=== PATIENT | female | born 1945 | race Caucasian/White ===

== ENCOUNTER → 2016-11-24 | Outpatient (CLI) | payer MEDICARE ==
--- NOTE | 2016-11-24 10:25 | MM ---
Reason for exam: additional evaluation requested from prior study. Last mammogram was performed 1 year and 3 months ago. History: Patient is postmenopausal, has history of breast cancer at age 62, and has history of other cancer at age 58. Benign right mammotome panel of the right breast, October 13, 2010. Excisional biopsy of the right breast, May 08, 2008. Malignant right mammotome panel of the right breast, April 28, 2008. Radiation therapy of the right breast, 2007. Chemotherapy. Took estrogen for 5 years. Took antineoplastic for 5 years beginning at age 62. Physical Findings: Nurse did not find any significant physical abnormalities on exam. MG 3D Diag Mammo W/Cad GREG Bilateral CC and MLO view(s) were taken. Prior study comparison: August 19, 2015, bilateral MG 3d diag mammo w/cad GREG. April 27, 2014, bilateral MG diagnostic mammo w CAD GREG. The breast tissue is heterogeneously dense. This may lower the sensitivity of mammography. Finding #1: Architectural distortion in the posterior position of the right breast consistent with known lumpectomy. Finding #2: There are typically benign round calcifications in both breasts. There is no discrete abnormality. These results were verbally communicated with the patient and result sheet given to the patient on 11/24/16. ASSESSMENT: Benign, BI-RAD 2 RECOMMENDATION: Follow-up diagnostic mammogram of both breasts in 1 year.
== END | disposition home or self-care (01) ==
LOC: RADMAMWWP 09:33
PROVIDERS: ATTEND Surgery
DX: R92.8 Other abnormal and inconclusive findings on diagnostic imaging of breast (principal)
CPT/HCPCS: G0204; G0279

== ENCOUNTER → 2017-05-12 | Outpatient (CLI) | payer MEDICARE ==
--- NOTE | 2017-05-12 09:52 | PE ---
EXAMINATION TYPE: PET CT fusion skull to thigh DATE OF EXAM: 05/12/2017 CLINICAL HISTORY: Lymphoma progress study originally diagnosed 2003 per patient. Completed chemothera py 2014. History of surgery for right-sided lung cancer 2003 and surgery for right-sided breast cance r 2007 per patient. Radiation treatment for right hip October 2016 per patient. TECHNIQUE: Following the intravenous administration of 15.05 mCi of F-18 FDG, whole body images are performed from the skull base to the midthigh. Images are reviewed on the computer in the coronal, axial, and sagittal planes. Reconstructed rotating images are created on independent workstation and reviewed on the computer. A non-contrast CT is performed in conjunction with the PET scan. COMPARISON: Most recent PET/CT November 11, [address] July 25, 2016. Older PET CTs back through December 05, 2014 FINDINGS: SKULL BASE AND NECK: No suspicious no hypermetabolic uptake is seen in the neck to suggest neck lakshmi opathy. CHEST, MEDIASTINUM, AND HILAR REGION: No suspicious hypermetabolic uptake is seen in the thorax to herrmann ggest new thoracic adenopathy. ABDOMEN AND PELVIS: Normal excretion from both kidneys is seen. There is persistent moderate right-si ded hydronephrosis. No suspicious hypermetabolic uptake is seen in the abdomen or pelvis on current study. Slightly more prominent soft tissue presacral region remains present, right greater than left without abnormal hype rmetabolic uptake on current study. OSSEOUS STRUCTURES: No suspicious hypermetabolic uptake is seen in the osseous structures. OTHER CT: There is background mild emphysematous change. Groundglass opacity posteriorly left upper l jeanette is redemonstrated and may reflect edema and/or atelectasis. There is persistent linear scarring m edially in the left lung base and in the lingula near diaphragm. There is surgical changes right isabel r region from partial pneumonectomy redemonstrated. There is persistent stable lumpectomy changes medially in the right breast. There is persistent moderate to large size hiatal hernia. There is heterogeneous hypodense appearance to liver particularly right hepatic lobe consistent with diffuse fatty infiltration redemonstrated. There are large simple appearing cysts posteriorly lower pole level of both kidneys redemonstrated. Diverticula in the sigmoid colon are redemonstrated. There are moderate to large sized fat-containing inguinal hernia is redemonstrated. Uterus is surgically absent or markedly atrophic in appearance. There is moderate calcified plaque of aorta extending into branch vessels. Osseous structures are demineralized. There is underlying levoconvex scoliosis and lumbar spine redem onstrated. There is moderate multilevel spurring and disc space narrowing in the lumbar spine. Facet arthropathy lower lumbar levels is redemonstrated. There is multilevel spurring in the thoracolumbar spine noted. Calcification in left labia is redemonstrated. IMPRESSION: Stable abnormal soft tissue presacral region lower abdomen and pelvis corresponds to know n lymphoma. No areas of hypermetabolic uptake are identified to suggest active neoplastic recurrence.
== END | disposition home or self-care (01) ==
LOC: RADPETMAIN 07:19
PROVIDERS: ATTEND Internal Medicine Hematology & Oncology
DX: C85.16 Unspecified B-cell lymphoma, intrapelvic lymph nodes (principal)
CPT/HCPCS: 78815; A9552

== ENCOUNTER → 2017-12-05 | Outpatient (CLI) | payer MEDICARE ==
--- NOTE | 2017-12-05 09:42 | MM ---
Reason for exam: screening (asymptomatic). Last mammogram was performed 1 year ago. History: Patient is postmenopausal, has history of breast cancer at age 62, and has history of other cancer at age 58. Benign right mammotome panel of the right breast, October 13, 2010. Excisional biopsy of the right breast, May 08, 2008. Malignant right mammotome panel of the right breast, April 28, 2008. Radiation therapy of the right breast, 2007. Chemotherapy. Took estrogen for 5 years. Took antineoplastic for 5 years beginning at age 62. Physical Findings: A clinical breast exam by your physician is recommended on an annual basis and results should be correlated with mammographic findings. MG 3D Diag Mammo W/Cad GREG Bilateral CC and MLO view(s) were taken. Prior study comparison: November 24, 2016, bilateral MG 3d diag mammo w/cad GREG. August 19, 2015, bilateral MG 3d diag mammo w/cad GREG. The breast tissue is heterogeneously dense. This may lower the sensitivity of mammography. There is no discrete abnormality. Stable post operative changes in the right breast. No significant new findings when compared with previous films. These results were verbally communicated with the patient and result sheet given to the patient on 12/05/17. ASSESSMENT: Benign, BI-RAD 2 RECOMMENDATION: Follow-up diagnostic mammogram of both breasts in 1 year.
== END | disposition home or self-care (01) ==
LOC: RADMAMWWP 07:50
PROVIDERS: ATTEND Family Medicine
DX: R92.0 Mammographic microcalcification found on diagnostic imaging of breast (principal); Z85.3 Personal history of malignant neoplasm of breast
CPT/HCPCS: 77066; G0279

== ENCOUNTER → 2018-12-16 | Outpatient (CLI) | payer MEDICARE ==
--- NOTE | 2018-12-16 10:25 | MM ---
Reason for exam: additional evaluation requested from prior study. Last mammogram was performed 1 year ago. History: Patient is postmenopausal, has history of breast cancer at age 62, and has history of other cancer at age 58. Family history of breast cancer in paternal cousin. Benign right mammotome panel of the right breast, October 13, 2010. Excisional biopsy of the right breast, May 08, 2008. Malignant right mammotome panel of the right breast, April 28, 2008. Radiation therapy of the right breast, 2007. Chemotherapy. Took estrogen for 5 years. Took antineoplastic for 5 years beginning at age 62. Physical Findings: Nurse did not find any significant physical abnormalities on exam. MG 3D Diag Mammo W/Cad GREG Bilateral CC and MLO view(s) were taken. Prior study comparison: December 05, 2017, bilateral MG 3d diag mammo w/cad GREG. November 24, 2016, bilateral MG 3d diag mammo w/cad GREG. The breast tissue is heterogeneously dense. This may lower the sensitivity of mammography. Finding #1: Architectural distortion in the inner quadrant, posterior position of the right breast consistent with known lumpectomy. Finding #2: There are typically benign vascular, round calcifications in both breasts. There is no discrete abnormality. These results were verbally communicated with the patient and result sheet given to the patient on 12/16/18. ASSESSMENT: Benign, BI-RAD 2 RECOMMENDATION: Follow-up diagnostic mammogram of both breasts in 1 year.
== END | disposition home or self-care (01) ==
LOC: RADMAMWWP 09:13
PROVIDERS: ATTEND Family Medicine
DX: R92.8 Other abnormal and inconclusive findings on diagnostic imaging of breast (principal)
CPT/HCPCS: 77066; G0279; 77062

== ENCOUNTER → 2019-05-15 | Outpatient (CLI) | payer MEDICARE ==
--- NOTE | 2019-05-15 10:04 | CT ---
EXAMINATION TYPE: CT ChestAbdPelvis w con DATE OF EXAM: 05/15/2019 COMPARISON: PET/CT scan 05/12/2017 HISTORY: Lymphoma CT DLP: 1442.9 mGycm Automated exposure control for dose reduction was used. CONTRAST: CT scan of the chest, abdomen and pelvis is performed with Oral Contrast and with IV Contrast, patien t injected with 100 mL of Isovue 300. FINDINGS: LUNGS: The lungs are grossly clear, there is no concerning parenchymal mass or nodule identified. T here is no pleural effusion or pneumothorax seen. The tracheobronchial tree is patent. Subsegmental consolidation left lung base suggestive of scar or atelectasis. Mild emphysematous changes suggested. MEDIASTINUM: There are no greater than 1 cm hilar or mediastinal lymph nodes. No pericardial effusi on is seen. OTHER: Calcifications previous biopsy involving the right breast noted. Large hiatal hernia LIVER/GB: Mild reduced attenuation the liver suggestive of mild fatty infiltration.. PANCREAS: No significant abnormality is seen. SPLEEN: No significant abnormality is seen. ADRENALS: No significant abnormality is seen. KIDNEYS: Simple appearing cysts are seen bilaterally. BOWEL: Gas pattern nonspecific. No definite obstruction. Diverticulosis noted. LYMPH NODES: No greater than 1 cm abdominal or pelvic lymph nodes are appreciated. OSSEOUS STRUCTURES: Hypertrophic and degenerative change of the spine noted. Severe arthropathy of th e left hip. OTHER: Uterus surgically absent. Atherosclerotic change of the aorta with no evidence of aneurysm. As ymmetric soft tissue prominence of the right posterior presacral region is stable. Measures 5.8 x 1.8 cm and is stable. 3 mm density along the outer margin the right breast on axial image 27 appears to be related to tissue coronal and sagittal images. Surgical clips in masslike density or large scar in the inner margin of the right breast is stable from recent PET scan. IMPRESSION: 1. There is no interval change in the appearance of the asymmetric soft tissue prominence in the righ t presacral region relative to the prior PET/CT scan. There is no evidence of new adenopathy. Line 2. Findings involving the right breast are stable relative to the prior exam.
== END | disposition home or self-care (01) ==
LOC: RADCTMAIN 07:34
PROVIDERS: ATTEND Internal Medicine Hematology & Oncology
DX: C85.16 Unspecified B-cell lymphoma, intrapelvic lymph nodes (principal); Z88.2 Allergy status to sulfonamides
CPT/HCPCS: 82565; 84520; 71260; 74177; 36415; Q9967

== ENCOUNTER → 2020-02-26 | Outpatient (CLI) | payer MEDICARE ==
--- NOTE | 2020-03-02 07:57 | MM ---
Reason for exam: additional evaluation requested from prior study. Last mammogram was performed 1 year and 2 months ago. History: Patient is postmenopausal, has history of breast cancer at age 62, and has history of other cancer at age 58. Family history of breast cancer in paternal cousin. Benign right mammotome panel of the right breast, October 13, 2010. Excisional biopsy of the right breast, May 08, 2008. Malignant right mammotome panel of the right breast, April 28, 2008. Radiation therapy of the right breast, 2007. Chemotherapy. Took estrogen for 5 years. Took antineoplastic for 5 years beginning at age 62. Physical Findings: Nurse did not find any significant physical abnormalities on exam. MG 3D Diag Mammo W/Cad GREG Bilateral CC and MLO view(s) were taken. Prior study comparison: December 16, 2018, bilateral MG 3d diag mammo w/cad GERG. December 05, 2017, bilateral MG 3d diag mammo w/cad GREG. The breast tissue is heterogeneously dense. This may lower the sensitivity of mammography. Post biopsy changes right upper inner quadrant. No significant new findings when compared with previous films. These results were verbally communicated with the patient and result sheet given to the patient on 02/26/20. ASSESSMENT: Benign, BI-RAD 2 RECOMMENDATION: Follow-up diagnostic mammogram of both breasts in 1 year.
== END | disposition home or self-care (01) ==
LOC: RADMAMWWP 10:56
PROVIDERS: ATTEND Internal Medicine Hematology & Oncology
DX: Z85.3 Personal history of malignant neoplasm of breast (principal)
CPT/HCPCS: 77066; G0279; 77062

== ENCOUNTER → 2020-05-17 | Outpatient (CLI) | payer MEDICARE ==
--- NOTE | 2020-05-17 14:58 | CT ---
EXAMINATION TYPE: CT ChestAbdPelvis w con DATE OF EXAM: 05/17/2020 COMPARISON: CT chest abdomen pelvis 05/15/2019 HISTORY: Lymphoma CT DLP: 1523.2 mGycm Automated exposure control for dose reduction was used. CONTRAST: CT scan of the chest, abdomen and pelvis is performed with Oral Contrast and without and with IV Cont rast, patient injected with 80 mL of Isovue 300. FINDINGS: LUNGS: The lungs are grossly clear, there is no concerning parenchymal mass or nodule identified. Mil d centrilobular emphysema. Scarring or linear atelectasis at the left lung base. There is no pleural effusion or pneumothorax seen. The tracheobronchial tree is patent. MEDIASTINUM: There are no greater than 1 cm hilar or mediastinal lymph nodes. Cardiac size normal. N o pericardial effusion is seen. No thoracic aortic aneurysm. OTHER: No axillary adenopathy. Calcifications and surgical clips involving the right breast hypodens e mass unchanged versus 05/15/2019 CT comparison. LIVER/GB: Fatty liver, primarily involving the right lobe. No focal liver lesion. No intrahepatic or extrahepatic ductal dilatation. PANCREAS: Normal. SPLEEN: Not enlarged. No focal lesion. ADRENALS: Normal. KIDNEYS: Right extrarenal pelvis unchanged. No hydronephrosis bilaterally. There is mild asymmetric p rominence of the right ureter to the level of the right presacral soft tissue, which is unchanged arabella gabriel 2019 CT comparison and may represent some element of chronic tethering, with no jhon hydroureter . Large bilateral simple renal cysts. BOWEL: Large hiatal hernia. No evidence of bowel obstruction or thickening. Sigmoid colon diverticul osis. No acute diverticulitis. Normal appendix. PERITONEUM: No pneumoperitoneum. No free fluid. Bilateral fat-containing inguinal hernias. PELVIS: There is redemonstrated soft tissue in the right presacral region which is unchanged versus comparison. Urinary bladder normal. Status post hysterectomy. LYMPH NODES: No lymphadenopathy. VASCULATURE: No abdominal aortic aneurysm. Calcified atherosclerotic disease of the abdominal aorta. OSSEOUS STRUCTURES: No aggressive osseous destructive lesions. There is redemonstrated heterogenous s clerotic and lytic appearance of the right iliac bone, which is unchanged versus at least 09/02/[address] comparison. Degenerative changes of the spine and bilateral hips. Levocurvature of the lumbar spine. IMPRESSION: 1. Unchanged right presacral soft tissue versus 05/15/2019 CT comparison and 05/12/[address] compariso n. 2. No evidence of new lymphadenopathy or metastatic disease of the chest, abdomen, or pelvis. 3. Fatty liver. 4. Unchanged appearance of the right breast.
== END ==
LOC: RADCTMAIN 08:47
PROVIDERS: ATTEND Internal Medicine Hematology & Oncology
DX: K76.0 Fatty (change of) liver, not elsewhere classified (principal); C85.16 Unspecified B-cell lymphoma, intrapelvic lymph nodes; Z88.2 Allergy status to sulfonamides
CPT/HCPCS: 82565; 84520; 71260; 74177; 36415; Q9967

== ENCOUNTER → 2020-09-17 | Outpatient (CLI) | payer MEDICARE ==
--- NOTE | 2020-09-17 11:39 | USB ---
Reason for exam: clinical finding. History: Patient is postmenopausal, has history of breast cancer at age 62, and has history of other cancer at age 58. Family history of breast cancer in paternal cousin. Benign right mammotome panel of the right breast, October 13, 2010. Excisional biopsy of the right breast, May 08, 2008. Malignant right mammotome panel of the right breast, April 28, 2008. Radiation therapy of the right breast, 2007. Chemotherapy. Took estrogen for 5 years. Took antineoplastic for 5 years beginning at age 62. Indicated problem(s): lump or thickening in the right breast. Physical Findings: Nurse Summary: 1cm hard, thick nodule at 11 o'clock (nurse dw). US Breast RT Right complete breast ultrasound includes all four quadrants, the retroareolar region and axilla. Finding demonstrates a 3.3 x 4.4 x 1.2cm mixed lesion at 1 o'clock, mobile debris with calcifications and tract to skin line. These results were verbally communicated with the patient and result sheet given to the patient on 09/17/20. ASSESSMENT: Benign, BI-RAD 2 RECOMMENDATION: Routine screening mammogram of both breasts in 6 months.
== END | disposition home or self-care (01) ==
LOC: RADUSWWP 10:04
PROVIDERS: ATTEND Internal Medicine Hematology & Oncology
DX: N63.10 Unspecified lump in the right breast, unspecified quadrant (principal); Z85.3 Personal history of malignant neoplasm of breast

== ENCOUNTER → 2021-03-21 | Outpatient (CLI) | payer MEDICARE ==
--- NOTE | 2021-03-23 13:58 | MM ---
Reason for exam: screening (asymptomatic). Last mammogram was performed 1 year and 1 month ago. History: Patient is postmenopausal, has history of breast cancer at age 62, and has history of other cancer at age 58. Family history of breast cancer in paternal cousin. Benign right mammotome panel of the right breast, October 13, 2010. Excisional biopsy of the right breast, May 08, 2008. Malignant right mammotome panel of the right breast, April 28, 2008. Radiation therapy of the right breast, 2007. Chemotherapy. Took estrogen for 5 years. Took antineoplastic for 5 years beginning at age 62. Physical Findings: A clinical breast exam by your physician is recommended on an annual basis and results should be correlated with mammographic findings. MG 3D Screening Mammo W/Cad Bilateral CC and MLO view(s) were taken. Prior study comparison: February 26, 2020, bilateral MG 3d diag mammo w/cad GREG. December 16, 2018, bilateral MG 3d diag mammo w/cad GREG. December 05, 2017, bilateral MG 3d diag mammo w/cad GREG. The breast tissue is heterogeneously dense. This may lower the sensitivity of mammography. Right post operative changes. ASSESSMENT: Benign, BI-RAD 2 RECOMMENDATION: Routine screening mammogram of both breasts in 1 year.
== END | disposition home or self-care (01) ==
LOC: RADMAMWWP 08:03
PROVIDERS: ATTEND Family Medicine
DX: Z12.31 Encounter for screening mammogram for malignant neoplasm of breast (principal); Z78.0 Asymptomatic menopausal state; Z80.3 Family history of malignant neoplasm of breast; Z85.3 Personal history of malignant neoplasm of breast
CPT/HCPCS: 77063; 77067

== ENCOUNTER → 2021-06-21 | Outpatient (CLI) | payer MEDICARE ==
--- NOTE | 2021-06-21 15:34 | CT ---
EXAMINATION TYPE: CT ChestAbdPelvis w con DATE OF EXAM: 06/21/2021 COMPARISON: CT 05/17/2020 HISTORY: Lymphoma, Lung CA, Breast CA CT DLP: 1461.1 mGycm Automated exposure control for dose reduction was used. CONTRAST: CT scan of the chest, abdomen and pelvis is performed with Oral Contrast and with IV Contrast, patien t injected with 80 mL of Isovue 300. FINDINGS: LUNGS: The lungs are stable, there is no concerning parenchymal mass or nodule identified. There ar e some interstitial changes, scarring present similar to prior exam There is no pleural effusion or p neumothorax seen. The tracheobronchial tree is patent. MEDIASTINUM: There are no greater than 1 cm hilar or mediastinal lymph nodes. No pericardial effusi on is seen. There is a hiatal hernia with partial intrathoracic stomach, postop changes are noted in the right hilar region AORTA: No significant abnormality is seen. 4 super aortic branch vessels are again noted, atheromato us changes are present within the aorta. OTHER: Postop changes are again noted in the medial right breast with a similar appearance, soft tiss ue extending to the level of the skin. LIVER/GB: No significant interval change is appreciated. Low-attenuation again noted within the live r suggests hepatic steatosis, gallbladder is normal PANCREAS: No significant abnormality is seen. SPLEEN: No significant abnormality is seen. ADRENALS: No significant abnormality is seen. KIDNEYS: No significant interval change is seen, large exophytic cortical cysts are again seen, extra renal pelvis is noted on the right similar to prior exam. The tethered appearance of the right ureter extending towards the right pelvic sidewall mildly asymmetric soft tissue is again seen REPRODUCTIVE ORGANS: No gross abnormality seen. BOWEL: No significant abnormality is seen. FREE AIR: No Free Air visible. ASCITES: None seen. RETROPERITONEAL ADENOPATHY: No retroperitoneal adenopathy is seen. LYMPH NODES: No greater than 1 cm abdominal or pelvic lymph nodes are appreciated. URINARY BLADDER: No significant abnormality is seen. PELVIC ADENOPATHY: None visualized. OSSEOUS STRUCTURES: No significant interval change is seen, sclerotic density is again noted in the right ilium. Arthropathy, osteoarthritic changes are present within the left hip as on prior. Facet a rthropathy, degenerative disc changes, scoliotic curvature again noted within the visualized spine.. IMPRESSION: Findings are essentially stable.
== END | disposition home or self-care (01) ==
LOC: RADCTMAIN 09:08
PROVIDERS: ATTEND Internal Medicine Hematology & Oncology
DX: C85.16 Unspecified B-cell lymphoma, intrapelvic lymph nodes (principal); C34.90 Malignant neoplasm of unspecified part of unspecified bronchus or lung; C50.919 Malignant neoplasm of unspecified site of unspecified female breast
CPT/HCPCS: 82565; 84520; 71260; 74177; 36415; Q9967 ×2

== ENCOUNTER → 2021-07-15 | Outpatient (CLI) | payer MEDICARE ==
--- NOTE | 2021-07-15 11:46 | BD ---
EXAMINATION TYPE: Axial Bone Density DATE OF EXAM: 07/15/2021 COMPARISON: NONE CLINICAL HISTORY: 75 YR OLD FEMALE.....ICD-10 CODE: C50.919 BR CANCER, M85.9 OSTEOPENIA Height: 66.4 Weight: 198 FRAX RISK QUESTIONS: Secondary Osteoporosis: YES 3. Menopause before 45: YES RISK FACTORS HISTORY OF: Family History of Osteoporosis: UNKNOWN, Postmenopausal woman: YES, AT AGE 40 YRS NATURAL Take estrogen and/or progesterone medications: YES FOR ABOUT 3-4 YRS Hyperparathyroidism: NO Adrenal Insufficiency: NO MEDICATIONS: Osteoporosis Medications: YES, IN THE PAST FOR ABOUT 5 YRS, FOSAMAX Additional Medications: HX OF RADIATION AND CHEMO, BP MEDS, REFLUX MEDS, STATIN FOR CHOLESTEROL, VIT D AND CALCIUM ,NSAIDS ASPIRIN Additional History: HX OF BR CANCER RT BREAST, LYMPHOMA, HX OF RADIATION, CHEMO, PAGET DISEASE, LUNG CANCER, HYPERTENSION, REFLUX, CHOLESTEROL, ARTHRITIS EXAM MEASUREMENTS: Bone mineral densitometry was performed using the [employer] System. Bone mineral density as measured about the Lumbar spine is: ----- L1-L4(G/cm2): 1.152 T Score Values are as follows: ----- L1: -0.9 ----- L2: -0.8 ----- L3: 1.0 ----- L4: -0.2 ----- L1-L4: -0.2 Bone mineral density FIRST DEXA AT [facility] Bone mineral density about the R hip (g/cm2): 1.127 Bone mineral density about the L hip (g/cm2): 1.216 T Score values are as follows: -----R Neck: -0.4 -----L Neck: 2.9 -----R Total: 0.9 -----L Total: 1.7 Bone mineral density FIRST STUDY AT [facility] FRAX%s: THERE IS A 8.3% CHANCE FOR A MAJOR OSTEOPOROTIC FX AND A 0.9% FOR HIP.....PROBABILITY FOR FX IN 10 YRS TIME IMPRESSION: Normal (Values between +1 and -1 indicate normal bone mass). Consider repeating this study in 5 year s or sooner if there is some new clinical indication. NOTE: T-SCORE=SD OF THE YOUNG ADULT MEAN.
== END | disposition home or self-care (01) ==
LOC: RADBDWWP 10:18
PROVIDERS: ATTEND Internal Medicine Hematology & Oncology
DX: C50.919 Malignant neoplasm of unspecified site of unspecified female breast (principal); M85.9 Disorder of bone density and structure, unspecified
CPT/HCPCS: 77080

== ENCOUNTER 2021-11-08 07:59 | Day surgery (SDC) | payer MEDICARE ==
[2021-11-03 11:52] VITALS: BMI 30.1
[~2021-11-08 07:59] MED LIST: LIDOCAINE 1% (10MG/ML) FOR IV START INTRADERMA PRN
[2021-11-08 08:26] VITALS: RESP 16; TEMP 97.1
[2021-11-08] MEDS: LACTATED RINGERS 1,000 ML IV SCH ×2 (08:29→09:37)
[2021-11-08] MEDS ORDERED: PROPOFOL 10 MG/ML 20 ML VIAL IV ONE (09:11)
--- NOTE | 2021-11-08 09:18 | P.GSHP ---
History of Present Illness H&P Date: 11/08/21 Chief Complaint: Colon cancer screening, history of polyps 76-year-old female here today for colonoscopy. Last colonoscopy 3-4 years ago. Patient says she has a history of colon polyps at all of her previous colonoscopies. When she went 5 years between her colonoscopies they noted higher volume of polyps therefore they were recommending she get colonoscopies every 3 years. No bowel complaints. Past Medical History Past Medical History: Cancer, Deep Vein Thrombosis (DVT), Hypertension, Rheumatoid Arthritis (RA) Additional Past Medical History / Comment(s): BLOOD CLOT R leg AFTER , VARICOSE VEINS bilaterally, LUNG CA-2004, BREAST CA RT SIDE-TX 33 RADIATION TX, Nonhodgkins LYMPHOMA-diagnosed11/2014 w/chemotherapy & radiation, hx. Paget's disease History of Any Multi-Drug Resistant Organisms: None Reported Past Surgical History: Breast Surgery, Hysterectomy, Tonsillectomy Additional Past Surgical History / Comment(s): Port a cath insertion then removal. VEIN STRIPPING, RT LOWER LOBE LOBECTOMY-2003,LUMPECTOMY RT BREAST, colonoscopies Past Anesthesia/Blood Transfusion Reactions: Postoperative Nausea & Vomiting (PONV) Additional Past Anesthesia/Blood Transfusion Reaction / Comment(s): Pt did have post op nausea and vomiting following her breast lumpectomy only,. Pt has never received blood. Smoking Status: Former smoker - Past Family History Brother(s) Family Medical History: Cancer Additional Family Medical History / Comment(s): PROSTATE METS TO BONE Sister(s) Family Medical History: Cancer Additional Family Medical History / Comment(s): BOWEL Father Family Medical History: Coronary Artery Disease (CAD), Myocardial Infarction ([place]) Mother Additional Family Medical History / Comment(s): Mother at age 81 or 82 yrs. She was in an auto accident and lived 20 yrs after that in a senior living. Medications and Allergies Home Medications Medication Instructions Recorded Confirmed Type Aspirin 81 mg PO HS 12/16/14 11/03/21 History Atorvastatin Calcium [Lipitor] 20 mg PO HS 12/16/14 11/03/21 History Omeprazole 40 mg PO AC-BRKFST 12/16/14 11/03/21 History amLODIPine [Norvasc] 2.5 mg PO DAILY 12/16/14 11/03/21 History Calcium Carbonate [Tums] 600 mg PO BID 01/13/15 11/03/21 History Multivitamins, Thera [Multivitamin 1 tab PO DAILY@1200 01/13/15 11/03/21 History (formulary)] Acetaminophen Tab [Tylenol] 1,000 mg PO Q4H PRN 03/07/15 11/03/21 History [place]-3S/Dha/Epa/Fish Oil [[place]-3 1 tab PO DAILY 03/08/15 11/03/21 History Fish Oil 1,000 mg Sfgl] Metoprolol Succinate (ER) [Toprol 100 mg PO QAM #30 tab.er.24h 03/12/15 11/03/21 Rx XL] Allergies Allergy/AdvReac Type Severity Reaction Status Date / Time Sulfa (Sulfonamide Allergy Rash/Hives Verified 11/08/21 08:18 Antibiotics) Surgical - Exam Vital Signs Temp Pulse Resp BP Pulse Ox 97.1 F L 74 16 196/88 95 11/08/21 08:21 11/08/21 08:21 11/08/21 08:21 11/08/21 08:21 11/08/21 08:21 Physical exam: General: Well-developed, well-nourished HEENT: Normocephalic, sclerae nonicteric Abdomen: Nontender, nondistended Extremities: No edema Neuro: Alert and oriented Assessment and Plan (1) Colon cancer screening Narrative/Plan: Will proceed with colonoscopy Current Visit: Yes Status: Acute Code(s): Z12.11 - ENCOUNTER FOR SCREENING FOR MALIGNANT NEOPLASM OF COLON SNOMED Code(s): 632024484
--- NOTE | 2021-11-08 09:39 | P.PCN ---
Date of Procedure: 11/08/21 Procedure(s) Performed: PREOPERATIVE DIAGNOSIS: Screening, history of polyps POSTOPERATIVE DIAGNOSIS: Multiple polyps, diverticulosis PROCEDURE: Colonoscopy with snare polypectomy ANESTHESIA: MAC SURGEON: Richard Raya M.D. SPECIMENS: Polyps ENDOSCOPIC PROCEDURE: The patient was placed on the endoscopy table in the left decubitus position. The Olympus colonoscope was inserted into the anus and passed under direct visualization to the base of the cecum. The appendiceal orifice was visualized. From that point the scope was slowly withdrawn inspecting all surfaces carefully. There were no neoplastic inflammatory or polypoid lesions throughout the cecum. In the ascending colon a small polyp was removed using the snare with cautery technique. In the transverse colon 2 small polyps were seen and removed in a similar fashion. The descending colon appeared normal. In the sigmoid colon another small polyp was seen and removed similar fashion. The rectum appeared normal. Diverticulosis was seen. Digital rectal examination was normal. The patient was taken to the recovery room in stable condition per anesthesia guidelines. RECOMMENDATIONS: Resume diet. Await biopsy results. Follow colonoscopy 3 years.
[2021-11-08 10:00] VITALS: BP 156/77; PULSE 81
== END 2021-11-08 10:29 | disposition home or self-care (01) ==
LOC: ORWHC2ENDO 07:59
PROVIDERS: ATTEND Surgery
DX: Z12.11 Encounter for screening for malignant neoplasm of colon (principal); D12.5 Benign neoplasm of sigmoid colon; D12.3 Benign neoplasm of transverse colon; K57.30 Diverticulosis of large intestine without perforation or abscess without bleeding; I10 Essential (primary) hypertension; E78.5 Hyperlipidemia, unspecified; K21.9 Gastro-esophageal reflux disease without esophagitis; M06.9 Rheumatoid arthritis, unspecified; I83.93 Asymptomatic varicose veins of bilateral lower extremities; Z86.718 Personal history of other venous thrombosis and embolism; Z85.118 Personal history of other malignant neoplasm of bronchus and lung; Z85.3 Personal history of malignant neoplasm of breast; Z85.72 Personal history of non-Hodgkin lymphomas; Z92.21 Personal history of antineoplastic chemotherapy; Z92.3 Personal history of irradiation; Z90.710 Acquired absence of both cervix and uterus; Z97.2 Presence of dental prosthetic device (complete) (partial); Z98.890 Other specified postprocedural states; Z87.891 Personal history of nicotine dependence; Z80.42 Family history of malignant neoplasm of prostate; Z80.8 Family history of malignant neoplasm of other organs or systems; Z80.0 Family history of malignant neoplasm of digestive organs; Z82.49 Family history of ischemic heart disease and other diseases of the circulatory system; Z79.82 Long term (current) use of aspirin; Z79.899 Other long term (current) drug therapy; Z88.2 Allergy status to sulfonamides
CPT/HCPCS: 88305; 45385; J2704

== ENCOUNTER → 2022-04-03 | Outpatient (CLI) | payer MEDICARE ==
--- NOTE | 2022-04-04 20:02 | MM ---
Reason for Exam: Screening (asymptomatic). Last screening mammogram was performed 12 month(s) ago. Patient History: Menarche at age 13. First Full-Term at age 19. Hysterectomy at age 56. Postmenopausal. Other cancer, age 58. Breast cancer, right, age 62. Previous chest radiation therapy at age 62. Estrogen for 5 years until age 58. 05/08/2008, Excisional Biopsy on the Right side. 10/13/2010, Benign Core Biopsy on the right side. 04/28/2008, Malignant Core Biopsy on the right side. Chemotherapy. 2007, Radiation Therapy on the right side. Paternal cousin had breast cancer. Prior Study Comparison: 12/16/2018 Bilateral Diagnostic Mammogram, [facility]. 02/26/2020 Bilateral Diagnostic Mammogram, [facility]. 03/21/2021 Bilateral Screening Mammogram, [facility]. Tissue Density: The breast tissue is heterogeneously dense. This may lower the sensitivity of mammography. Findings: Analyzed By CAD. Postsurgical and posttreatment changes right breast with surgical clips and associated fat necrosis calcifications. Scattered benign secretory and well cystic calcifications are present on both sides along with some vascular calcifications. On the left, there is a 4 mm nodular asymmetry laterally at a middle to posterior depth not seen on the recent prior but may have been subtly present on the 2019 exam. A tiny, fluctuating cyst is suspected. Six-month follow-up is recommended to reassess. Overall Assessment: Probably benign, BI-RAD 3 Management: Diagnostic Mammogram of the left breast in 6 months. 1. Six-month follow-up diagnostic left breast mammogram for the tiny circumscribed nodule laterally, suspected to represent a small fluctuating cyst. 2. Patient should continue monthly self breast exams. 3. A clinical breast exam by your physician is recommended on an annual basis. Electronically signed and approved by: Hermila Kenny M.D. Radiologist
== END | disposition home or self-care (01) ==
LOC: RADMAMWWP 07:21
PROVIDERS: ATTEND Internal Medicine Hematology & Oncology
DX: Z12.31 Encounter for screening mammogram for malignant neoplasm of breast (principal)
CPT/HCPCS: 77063; 77067

== ENCOUNTER → 2022-10-04 | Outpatient (CLI) | payer MEDICARE ==
--- NOTE | 2022-10-04 11:28 | MM ---
Reason for Exam: Follow-up at short interval from prior study. Last screening mammogram was performed 6 month(s) ago. Patient History: Menarche at age 13. First Full-Term at age 19. Hysterectomy at age 56. Postmenopausal. Other cancer, age 58. Breast cancer, right, age 62. Previous chest radiation therapy at age 62. Estrogen for 5 years until age 58. 05/08/2008, Excisional Biopsy on the Right side. 10/13/2010, Benign Core Biopsy on the right side. 04/28/2008, Malignant Core Biopsy on the right side. Chemotherapy. 2007, Radiation Therapy on the right side. Paternal cousin had breast cancer. Prior Study Comparison: 02/26/2020 Bilateral Diagnostic Mammogram, [facility]. 03/21/2021 Bilateral Screening Mammogram, [facility]. 04/03/2022 Bilateral MG 3D screening mammo w/cad, [facility]. Tissue Density: Left: The breast tissue is heterogeneously dense. This may lower the sensitivity of mammography. Findings: Analyzed By CAD. Stable asymmetry left breast CC view 11 cm from nipple. This is seen on prior on 02/26/2020 and a significant change. No new masses, calcifications or distortions. Overall Assessment: Benign, BI-RAD 2 Management: Screening Mammogram of both breasts in 6 months. Back to routine screening. A clinical breast exam by your physician is recommended on an annual basis and results should be correlated with mammographic findings. This exam should not preclude additional follow-up of suspicious palpable abnormalities. Results were given to the patient verbally at the time of exam. Electronically signed and approved by: Soy Gama DO
== END | disposition home or self-care (01) ==
LOC: RADMAMWWP 10:28
PROVIDERS: ATTEND Internal Medicine Hematology & Oncology
DX: R92.2 Inconclusive mammogram (principal); Z85.3 Personal history of malignant neoplasm of breast; Z80.3 Family history of malignant neoplasm of breast; Z78.0 Asymptomatic menopausal state; Z98.890 Other specified postprocedural states
CPT/HCPCS: 77065; G0279; 77061

== ENCOUNTER → 2023-03-07 | Outpatient (CLI) | payer MEDICARE ==
--- NOTE | 2023-03-07 15:52 | CT ---
EXAMINATION TYPE: CT ChestAbdPelvis w con DATE OF EXAM: 03/07/2023 COMPARISON: Prior CT June 21, 2021 and older studies HISTORY: f/u lung ca CT DLP: 1919 mGycm. Automated Exposure Control for Dose Reduction was Utilized. CONTRAST: CT scan of the thorax, abdomen and pelvis is performed with oral and with IV Contrast, patient inject ed with 80cc mL of Isovue 300. FINDINGS: LUNGS: Mild to moderate underlying emphysematous change is redemonstrated mild bibasilar linear scarr ing and/or atelectasis again seen. No new greater than 5 mm pulmonary nodules. No pleural effusion or pneumothorax seen bilaterally. MEDIASTINUM: Surgical changes right hilar region redemonstrated. There are no new greater than 1 cm h ilar or mediastinal lymph nodes. No pericardial effusion is seen. Moderate to large size hiatal he rnia redemonstrated. Calcification at level of the mitral and aortic valve again seen. Some coronary artery calcification redemonstrated. Persistent four-vessel aortic arch which is normal variant OTHER: Surgical clips through the medial left breast with thin-walled fluid collection presumed small seroma measuring near 2.3 cm axial image 25 is redemonstrated. LIVER/GB: Liver remains diffusely low dense. PANCREAS: No significant abnormality is seen. SPLEEN: No significant abnormality is seen. ADRENALS: No significant abnormality is seen. KIDNEYS: Symmetric cortical medullary uptake and excretion with stable mild right-sided hydronephrosi s. Exophytic fairly large thin-walled cyst from the lower pole of both kidneys are redemonstrated. BOWEL: Oral contrast does not reach colonic level. No suspicious small or large bowel dilatation. GENITAL ORGANS: Uterus is surgically absent or markedly atrophic. LYMPH NODES: No greater than 1cm abdominal or pelvic lymph nodes are appreciated. OSSEOUS STRUCTURES: There is scoliosis with multilevel spurring in the thoracolumbar spine. There is advanced degenerative change in the left hip joint redemonstrated is loss of spherical shape along wi th severe narrowing and spurring and subchondral cystic change. Multilevel facet arthropathy in the l umbar spine. OTHER: Moderate calcified plaque of the aorta extends into branch vessels. Moderate-sized fat-contain ing bilateral inguinal hernias are redemonstrated. IMPRESSION: No suspicious new mass or adenopathy to suggest active neoplastic recurrence.
== END | disposition home or self-care (01) ==
LOC: RADCTMAIN 12:42
PROVIDERS: ATTEND Internal Medicine Hematology & Oncology
DX: C34.90 Malignant neoplasm of unspecified part of unspecified bronchus or lung (principal); J43.9 Emphysema, unspecified; J98.11 Atelectasis
CPT/HCPCS: 82565; 84520; 71260; 74177; 36415; Q9967

== ENCOUNTER → 2023-04-04 | Outpatient (CLI) | payer MEDICARE ==
--- NOTE | 2023-04-04 09:09 | MM ---
Reason for Exam: Screening (asymptomatic). Last screening mammogram was performed 12 month(s) ago. Patient History: Menarche at age 13. First Full-Term at age 19. Hysterectomy at age 56. Postmenopausal. Other cancer, age 58. Breast cancer, right, age 62. Previous chest radiation therapy at age 62. Estrogen for 5 years until age 58. 05/08/2008, Excisional Biopsy on the Right side. 10/13/2010, Benign Core Biopsy on the right side. 04/28/2008, Malignant Core Biopsy on the right side. Chemotherapy. 2007, Radiation Therapy on the right side. Paternal cousin had breast cancer, age 60. Prior Study Comparison: 03/21/2021 Bilateral Screening Mammogram, [facility]. 04/03/2022 Bilateral MG 3D screening mammo w/cad, [facility]. 10/04/2022 Left MG 3D diag mammo w/cad , [facility]. Tissue Density: The breast tissue is heterogeneously dense. This may lower the sensitivity of mammography. Findings: Analyzed By CAD. Postprocedural changes to the right breast with clips in place and dystrophic calcifications. Benign-appearing calcifications bilaterally. There is no suspicious group of microcalcifications or new suspicious mass in either breast. Overall Assessment: Benign, BI-RAD 2 Management: Screening Mammogram of both breasts in [address] [facility] will attempt to contact patient to return for supplemental views and ultrasound if indicated. Patient should continue monthly self-breast exams. A clinical breast exam by your physician is recommended on an annual basis. This exam should not preclude additional follow-up of suspicious palpable abnormalities. Note on Elva scores and lifetime risk: 1. A Elva score greater than 3% is considered moderate risk. If this is the case, consider specialist referral to assess eligibility for a risk reducing agent. 2. If overall lifetime risk for the development of breast cancer is 20% or higher, the patient may qualify for future screening with alternating mammogram and breast MRI. Electronically signed and approved by: Soy Gama DO
== END | disposition home or self-care (01) ==
LOC: RADMAMWWP 07:15
PROVIDERS: ATTEND Internal Medicine Hematology & Oncology
DX: Z12.31 Encounter for screening mammogram for malignant neoplasm of breast (principal); C85.16 Unspecified B-cell lymphoma, intrapelvic lymph nodes; C34.90 Malignant neoplasm of unspecified part of unspecified bronchus or lung; C50.919 Malignant neoplasm of unspecified site of unspecified female breast; E78.5 Hyperlipidemia, unspecified; Z78.0 Asymptomatic menopausal state; Z80.3 Family history of malignant neoplasm of breast
CPT/HCPCS: 77063; 77067

== ENCOUNTER → 2023-11-12 | Outpatient (CLI) | payer MEDICARE ==
--- NOTE | 2023-11-12 09:56 | US ---
EXAMINATION TYPE: US arterial LE single level DATE OF EXAM: 11/12/2023 9:42 AM CLINICAL INDICATION: Female, 78 years old with history of I73.9 PERIPHERAL VASCULAR DISEASE, UNSPECIF IED; Pt states pain in feet- pt states doctor feels it is chemo neuropathy History of: Smoker: Prior Hypertension: Yes Diabetic: No Hyperlipidemia: Yes TIA/CVA: No Previous Vascular Surgery: No CAD: No LA: No Vascular Ulcers: No Claudication: No Gangrene: No Doppler Waveforms: Right: Multiphasic Left: Multiphasic Right Brachial Pressure: 169 Left Brachial Pressure: 171 Ankle-Brachial Indices: Right: 1.2 Left: 1.1 Toe Brachial Indices: Right: 0.7 Left: 0.6 IMPRESSION: 1. Ankle-brachial indices within normal limits bilaterally. 2. Toe brachial indices suggestive of moderate to severe disease.
== END | disposition home or self-care (01) ==
LOC: RADUSWWP 09:15
PROVIDERS: ATTEND Family Medicine
DX: I73.9 Peripheral vascular disease, unspecified (principal); I10 Essential (primary) hypertension; E78.5 Hyperlipidemia, unspecified
CPT/HCPCS: 93922

== ENCOUNTER → 2024-04-07 | Outpatient (CLI) | payer MEDICARE ==
--- NOTE | 2024-04-07 10:27 | CT ---
EXAMINATION TYPE: CT chest wo con CT DLP: 596 mGycm, Automated exposure control for dose reduction was used. DATE OF EXAM: 04/07/2024 10:14 AM COMPARISON: CT chest abdomen pelvis 03/07/2023, 06/21/2021 CLINICAL INDICATION:Female, 78 years old with history of C34.90 lung ca; [facility], f/u lung cancer TECHNIQUE: Multiple axial images were obtained through the chest without IV contrast. Lack of IV or o ral contrast limits evaluation of solid and hollow organ viscera. . Coronal and sagittal reformats re viewed. FINDINGS: LUNGS/ PLEURA: No pleural effusion, pneumothorax, focal consolidation. Mild centrilobular emphysemato us changes with upper lobe predominance. Left lower lobe linear scarring and/or atelectasis. No new g reater than 5 mm pulmonary nodules identified. AIRWAY: Patent and unremarkable.. HEART: Size within normal limits. No pericardial effusion. Calcification the level of the mitral and aortic valve again seen. Coronary artery calcifications redemonstrated. MEDIASTINUM: Surgical changes in the right hilar region redemonstrated. No pathologically enlarged ly mph nodes identified measuring greater than 1 cm short axis. VASCULATURE: No aortic aneurysm. Four-vessel aortic arch. MUSCULOSKELETAL: No acute osseous abnormalities. No aggressive osseous lesion. Osteoarthritic changes of both shoulders. Remote manubrial fracture. Remote left lateral third, fourth, and fifth rib fract ures. Mild multilevel degenerative changes of the visualized spine. SOFT TISSUES/LYMPH NODES: No axillary lymphadenopathy identified. Redemonstration of surgical clips t hrough the medial right breast with associated small seroma measuring up to 3.3 cm. LOWER NECK: No significant findings. UPPER ABDOMEN: Moderate size hiatal hernia redemonstrated. Common bile duct dilatation measuring up t o 1.2 cm which is increased from prior examination when it measured up to 1.0 cm. IMPRESSION: 1. No new suspicious mass or adenopathy to suggest active neoplastic recurrence within the chest. 2. Dilated common bile duct which is increased from prior examination. Correlation with biliary obstr uction labs is with consideration for MRCP recommended. 3. Moderate size hiatal hernia redemonstrated.
--- NOTE | 2024-04-09 14:50 | MM ---
Reason for Exam: Hx of breast cancer, conservation therapy. Last mammogram was performed 1 year(s) and 1 month(s) ago. Patient History: Menarche at age 13. First Full-Term at age 19. Hysterectomy at age 56. Postmenopausal. Other cancer, age 58. Breast cancer, right, age 62. Previous chest radiation therapy at age 62. Estrogen for 5 years until age 58. 05/08/2008, Excisional Biopsy on the Right side. 10/13/2010, Benign Core Biopsy on the right side. 04/28/2008, Malignant Core Biopsy on the right side. Chemotherapy. 2007, Radiation Therapy on the right side. Paternal cousin had breast cancer, age 60. Prior Study Comparison: 11/24/2016 Bilateral Diagnostic Mammogram, [facility]. 12/05/2017 Bilateral Diagnostic Mammogram, [facility]. 12/16/2018 Bilateral Diagnostic Mammogram, [facility]. 02/26/2020 Bilateral Diagnostic Mammogram, [facility]. 03/21/2021 Bilateral Screening Mammogram, [facility]. 04/03/2022 Bilateral MG 3D screening mammo w/cad, [facility]. 10/04/2022 Left MG 3D diag mammo w/cad LT, [facility]. 04/04/2023 Bilateral MG 3D screening mammo w/cad, [facility]. Tissue Density: The breasts are heterogeneously dense, which may obscure small masses. Findings: Analyzed By CAD. There is no suspicious group of microcalcifications or new suspicious mass in either breast. Postsurgical change right breast stable bilateral benign-appearing calcifications. Overall Assessment: Benign, BI-RAD 2 Management: Screening Mammogram of both breasts in 1 year. . Patient should continue monthly self-breast exams. A clinical breast exam by your physician is recommended on an annual basis. This exam should not preclude additional follow-up of suspicious palpable abnormalities. Note on Elva scores and lifetime risk: 1. A Elva score greater than 3% is considered moderate risk. If this is the case, consider specialist referral to assess eligibility for a risk reducing agent. 2. If overall lifetime risk for the development of breast cancer is 20% or higher, the patient may qualify for future screening with alternating mammogram and breast MRI. Electronically signed and approved by: Vel Amin M.D. Radiologis
== END | disposition home or self-care (01) ==
LOC: RADCTMAIN 09:54
PROVIDERS: ATTEND Internal Medicine Hematology & Oncology
DX: Z12.31 Encounter for screening mammogram for malignant neoplasm of breast (principal); C34.90 Malignant neoplasm of unspecified part of unspecified bronchus or lung; K44.9 Diaphragmatic hernia without obstruction or gangrene; K83.8 Other specified diseases of biliary tract; Z78.0 Asymptomatic menopausal state; Z80.3 Family history of malignant neoplasm of breast; E78.5 Hyperlipidemia, unspecified; Z71.3 Dietary counseling and surveillance; C85.16 Unspecified B-cell lymphoma, intrapelvic lymph nodes
CPT/HCPCS: 71250; 77063; 77067

== ENCOUNTER → 2024-12-30 | Outpatient (CLI) | payer MEDICARE ==
--- NOTE | 2024-12-30 10:24 | US ---
EXAMINATION TYPE: US liver DATE OF EXAM: 12/30/2024 COMPARISON: CT 2022 CLINICAL INDICATION: Female, 79 years old with history of ABNORMAL LFT R94.5; TECHNIQUE: Grayscale and color Doppler imaging of the right upper quadrant. FINDINGS: EXAM MEASUREMENTS: Liver Length: 18.7 cm Gallbladder Wall: 0.2 cm CBD: 0.6 cm, color Doppler imaging was utilized to isolate the common bile duct for measurement. Right Kidney: 10.3x6.0x6.0 cm LCAC RADAR OPERATOR/NAVIGATOR NOTES: very limited scan due to overlying bowel & pt body habitus Pancreas: Obscured by bowel gas Liver: Increased attenuation, decreased visualization of vessels suggestive of fatty infiltrate Enla rged Left lobe very difficult to visualize, not well seen due to overlying bowel, difficult to penetrate, intercostal views used Gallbladder: slightly obscured by bowel/rib shadow, intercostal views used ?sludge vs other within neck of gb Evidence for sonographic Purcell's sign: No CBD: wnl Right Kidney: Large anechoic area seen(lat/inf): 7.2x6.9x7.3cm Suboptimal evaluation of portions of pancreas. Visualized liver is heterogeneously hyperechoic and sl ightly enlarged. This limits evaluation for focal masses. No ascites. Suboptimal evaluation of the en tire gallbladder. Gallbladder has distended margins. No shadowing mobile gallstones. No biliary dilat ation. Partially exophytic thin-walled cyst measures 7.0 cm lower pole level right kidney is redemons trated. IMPRESSION: Suboptimal study. Mild hepatomegaly. Marked fatty infiltrative hepatocellular disease. [facility], , 12/30/2024 10:21 AM
== END | disposition home or self-care (01) ==
LOC: RADUSWWP 09:44
PROVIDERS: ATTEND Family Medicine
DX: K76.0 Fatty (change of) liver, not elsewhere classified (principal); R16.0 Hepatomegaly, not elsewhere classified; R94.5 Abnormal results of liver function studies
CPT/HCPCS: 76705

== ENCOUNTER → 2025-01-14 | Outpatient (CLI) | payer MEDICARE ==
[2025-01-14 13:46] LABS: African American GFR (CKD) 65 (>60 ml/min/1.73 sqM); Blood Urea Nitrogen 15 mg/dL (7-17); Non-African American GFR(CKD) 56 (>60 ml/min/1.73 sqM)
--- NOTE | 2025-01-14 15:35 | CT ---
EXAMINATION TYPE: CT abdomen wo/w con DATE OF EXAM: 01/14/2025 COMPARISON: CT chest abdomen pelvis 03/07/2023 CLINICAL INDICATION: Female, 79 years old with history of R94.5 ABNORMAL RESULTS OF LIVER FUNCTION ST UDIES; PHH, Abnormal liver enzymes TECHNIQUE: Performed with Oral Contrast and with IV Contrast, patient injected with 80ml mL of Isovue 300. CT DLP: [address] CTDI: mGy Automated exposure control for dose reduction was used. FINDINGS: The lung bases are clear. There is a large hiatal hernia. The gallbladder is normal without gallstones, wall thickening, distention or pericholecystic fluid. There is marked extrahepatic biliary ductal dilatation with the common bile duct measuring 16 mm. The re is mild intrahepatic biliary ductal dilatation. There is a 12 mm stone in the distal common bile d uct. There is no focal mass or organomegaly involving the liver, pancreas, spleen or adrenal glands. There is no solid renal mass or hydronephrosis and there is homogeneous contrast enhancement of the r enal parenchyma. There is a 7.2 cm simple cortical cyst of the right kidney and a 6.5 cm simple corti sondra cyst of the left kidney. The caliber the abdominal aorta is normal is no retroperitoneal adenopathy or hemorrhage. The bowel loops are normal in caliber and there is no evidence of dilatation or obstruction. No infla mmatory changes are identified in the bowel wall or mesentery. There is no free intraperitoneal air or fluid. The osseous structures and soft tissues are intact. IMPRESSION: 1. Choledocholithiasis with biliary ductal dilatation described above. There is a 12 mm stone in the distal common bile duct. 2. Large hiatal hernia. [facility], , 01/14/2025 3:32 PM
== END | disposition home or self-care (01) ==
LOC: RADCTMAIN 12:53
PROVIDERS: ATTEND Family Medicine
DX: K80.50 Calculus of bile duct without cholangitis or cholecystitis without obstruction (principal); K44.9 Diaphragmatic hernia without obstruction or gangrene; K83.8 Other specified diseases of biliary tract; R94.5 Abnormal results of liver function studies
CPT/HCPCS: 82565; 84520; 74170; 36415; Q9967

== ENCOUNTER 2025-02-06 13:03 | Day surgery (SDC) | payer MEDICARE ==
[2025-02-06 13:57] VITALS: RESP 16; TEMP 97.6
[2025-02-06] MEDS: IV FLUID CONTINUATION 1,000 ML IV ONE (13:58)
[2025-02-06] MEDS: LACTATED RINGERS 1,000 ML BAG IV STA (14:03)
[2025-02-06] MEDS: INDOMETHACIN 100 MG SUPPOSITORY RECTAL PRN (14:04)
[2025-02-06] MEDS: LEVOFLOXACIN 500MG-D5W PMX 500 MG in DEXTROSE/WATER 1 100ML.BAG IVPB PRN (14:04)
[2025-02-06 14:23] LABS: Basophils # (A) 0.05 10*3/uL (0.00-0.10); Basophils % (A) 0.7 %; Eosinophils # (A) 0.01 10*3/uL (0.04-0.35); Eosinophils % (A) 0.1 %; HCT 37.8 % (37.2-46.3); HGB 12.4 g/dL (12.0-15.0); Lymphocytes # (A) 1.25 10*3/uL (0.90-5.00); Lymphocytes % (A) 16.6 %; MCH 29.5 pg (27.0-32.0); MCHC 32.8 g/dL (32.0-37.0); Mean Platelet Volume 9.7 fL (9.5-12.2); Monocytes # (A) 0.88 10*3/uL (0.20-1.00); Monocytes % (A) 11.7 %; Neutrophils # (A) 5.29 10*3/uL (1.80-7.70); Neutrophils % (A) 70.1 %; Platelet Count 202 10*3/uL (140-440); RDW 14.6 % (11.5-14.5); WBC 7.54 10*3/uL (4.50-10.00)
[2025-02-06 14:38] LABS: Partial Thromboplastin Time 21.8 sec (22.0-30.0); Prothrombin Time 11.3 sec (10.0-12.5)
[2025-02-06 14:42] LABS: ALT 108 U/L (4-34); AST 58 U/L (14-36); African American GFR (CKD) 76 (>60 ml/min/1.73 sqM); Alkaline Phosphatase 522 U/L (38-126); Anion Gap 10 mmol/L; Blood Urea Nitrogen 13 mg/dL (7-17); Calcium 9.6 mg/dL (8.4-10.2); Carbon Dioxide 31 mmol/L (22-30); Chloride 100 mmol/L (98-107); Glucose 100 mg/dL (74-99); Non-African American GFR(CKD) 66 (>60 ml/min/1.73 sqM); Potassium 3.6 mmol/L (3.5-5.1); Sodium 141 mmol/L (137-145); Total Bilirubin 1.2 mg/dL (0.2-1.3); Total Protein 6.8 g/dL (6.3-8.2)
[2025-02-06] MEDS: IOPAMIDOL-300 30ML BTL INJ ONE ×2 (15:39→15:58)
[2025-02-06] MEDS ORDERED: KETAMINE HCL IN 0.9 % NACL 50 MG/5 ML SYRINGE ONE (15:41)
[2025-02-06] MEDS ORDERED: GLYCOPYRROLATE 0.2 MG/ML 2 ML VIAL ONE (15:41)
[2025-02-06] MEDS ORDERED: LIDOCAINE 1% INJ 10MG/ML (20 ML MDV) ONE (15:41)
[2025-02-06] MEDS ORDERED: PROPOFOL 10 MG/ML 20 ML VIAL IV ONE (15:41)
--- NOTE | 2025-02-06 16:19 | P.PCN ---
Date of Procedure: 02/06/25 Procedure(s) Performed: Brief history: Patient is a 79 year-old pleasant lady scheduled for an ERCP as part of evaluation of abdominal pain and elevated serum transaminases for the last 1 month duration. She has been having intermittent epigastric pain for almost 3 months but has been consistently worse for the last 1 month. Labs done about a month ago revealed alkaline phosphatase of 589, and mild elevation of serum transaminases. She had a CT of the abdomen pelvis done that showed a 1.2 cm stone in the distal common bile duct with biliary ductal dilation. She is not scheduled for an ERCP with CBD stone extraction today Procedure performed: ERCP with biliary sphincterotomy and balloon stone ex traction Preoperative diagnoses: Epigastric pain and CBD stone on recent CAT scan of the abdomen IV sedation per anesthesia: Procedure: After informed consent was obtained from the patient and after the risks benefits and complications including bleeding perforation and pancreatitis explained in detail the patient was brought into the endoscopy unit. The patient was placed in prone position and IV conscious sedation was administered by anesthesia under continuous monitoring. The Olympus side-viewing duodenoscope was then inserted into the mouth and esophagus intubated without any difficulty. The scope was gradually advanced into the stomach and duodenum. The major papilla was identified without any difficulty. Initial cannulation resulted in opacification of the pancreatic duct that appeared normal. Subsequently the common bile duct was cannulated without any difficulty and upon injection of the dye the CBD was dilated measuring 15 mm in diameter. There was mild intrahepatic biliary ductal dilation noted. There was a 1.2 cm stone noted in the proximal CBD. At this time the catheter was exchanged over the guidewire with a biliary sphincterotomy and a biliary sphincterotomy was performed at 11 o'clock position and was extended to 1.5 cm in length. Following this 11.5 mm balloon catheter was passed over the guidewire into the proximal CBD, gently inflated and withdrawn and the CBD stone was extracted that measured approximately 1 to 1.2 cm in size. Following this the maneuver was repeated 2 more times and no other stones were extracted.. Occlusion cholangiogram was performed and no other filling defects were noted. Patient tolerated the procedure well. Impression: Normal-appearing pancreatic duct Dilated CBD measuring 15 mm in diameter with mild intrahepatic biliary ductal dilation and a a 12 mm stone in the proximal common bile duct , status post biliary sphincterotomy followed by balloon stone extraction and a 1 cm stone was extracted Recommendations: The findings of this examination were discussed with the patient as well as a family. She will be observed for 1 hour and if she is stable she will be discharged home and advised to be on clear liquids for today. Follow-up in the office in 2 weeks. She was also advised to follow-up with Dr. Raya for gallbladder surgery.
--- NOTE | 2025-02-06 16:27 | FL ---
EXAMINATION TYPE: FL ERCP DATE OF EXAM: 02/06/2025 FLUOROSCOPY CBD STONE, 55 SEC FL TIME, DAP=[id number] 2 images are submitted [facility], Workstation: [id number], 02/06/2025 4:25 PM
[2025-02-06 16:54] VITALS: BP 163/85; PULSE 85
== END 2025-02-06 17:04 | disposition home or self-care (01) ==
LOC: ORWHC2ENDO 13:03
PROVIDERS: ATTEND Internal Medicine Gastroenterology
DX: K80.50 Calculus of bile duct without cholangitis or cholecystitis without obstruction (principal); I10 Essential (primary) hypertension; E78.5 Hyperlipidemia, unspecified; M06.9 Rheumatoid arthritis, unspecified; G62.9 Polyneuropathy, unspecified; Z85.118 Personal history of other malignant neoplasm of bronchus and lung; Z85.3 Personal history of malignant neoplasm of breast; Z86.718 Personal history of other venous thrombosis and embolism; Z79.899 Other long term (current) drug therapy; Z88.2 Allergy status to sulfonamides; Z90.710 Acquired absence of both cervix and uterus
CPT/HCPCS: 80053; 85025; 85610; 85730; 74330; 43264; 43262; J1956; J2003; J2704; J1596; 43260

== ENCOUNTER → 2025-04-08 | Outpatient (CLI) | payer MEDICARE ==
--- NOTE | 2025-04-08 15:45 | MM ---
Reason for Exam: Screening (asymptomatic). Last screening mammogram was performed 12 month(s) ago. Patient History: Menarche at age 13. First Full-Term at age 19. Hysterectomy at age 56. Postmenopausal. Other cancer, age 58. Breast cancer, right, age 62. Previous chest radiation therapy at age 62. Previous chemotherapy at age 69. Estrogen for 5 years until age 58. 05/08/2008, Excisional Biopsy on the Right side. 10/13/2010, Benign Core Biopsy on the right side. 04/28/2008, Malignant Core Biopsy on the right side. Chemotherapy. 2007, Radiation Therapy on the right side. Paternal cousin had breast cancer, age 60. Prior Study Comparison: 10/04/2022 Left MG 3D diag mammo w/cad , [facility]. 04/04/2023 Bilateral MG 3D screening mammo w/cad, [facility]. 04/07/2024 Bilateral MG 3D screening mammo w/cad, [facility]. Tissue Density: The breasts are heterogeneously dense, which may obscure small masses. Findings: Analyzed By CAD. Postsurgical and posttreatment changes right breast with extensive fat necrosis calcifications. Additional benign vascular, renal cyst, and a few secretory calcifications are also present. Asymmetric density central left cc view middle depth remains unchanged. There is no suspicious group of microcalcifications or new suspicious mass in either breast. Overall Assessment: Benign, BI-RAD 2 Management: Screening Mammogram of both breasts in 1 year. Patient should continue monthly self-breast exams. A clinical breast exam by your physician is recommended on an annual basis. This exam should not preclude additional follow-up of suspicious palpable abnormalities. [facility], , 04/08/2025 3:42 PM. Electronically signed and approved by: Hermila Kenny M.D. Radiologist
== END | disposition home or self-care (01) ==
LOC: RADMAMWWP 13:38
PROVIDERS: ATTEND Internal Medicine Hematology & Oncology
DX: Z12.31 Encounter for screening mammogram for malignant neoplasm of breast (principal); R92.333 Mammographic heterogeneous density, bilateral breasts; Z80.3 Family history of malignant neoplasm of breast; Z78.0 Asymptomatic menopausal state; Z85.3 Personal history of malignant neoplasm of breast
CPT/HCPCS: 77063; 77067